=== PATIENT | female | born 1960 | race Caucasian/White ===

== ENCOUNTER 2016-12-13 13:25 | Emergency (ER) | payer OTHER ==
[~2016-12-13] VITALS: Ht 167.6 cm; Wt 74.2 kg
[~2016-12-13 13:25] MED LIST: BUPR-79 PO; LRT5 PO
[2016-12-13 13:29] VITALS: TEMP 36.5; Ht 167.6 cm; Wt 74.2 kg
--- NOTE | 2016-12-13 14:28 | EMERGENCY ROOM VISIT NOTE ---
History First contact with patient: 13:39 Chief Complaint: ABDOMINAL PAIN Stated Complaint: SEVERE ABD. PAIN, VOMITING-SUDDEN ONSET History of Present Illness The patient is a 56 year old female who presents to the Emergency Room with complaints of RLQ abdominal pain. Pain started 12 PM today and was 8/10 constant , sharp, and fluctuating in intensity and radiates to the back. NO particular aggravating or alleviating factors. Symptoms started after eating cherries and chips. She also reports associated N/V. She noted redness in vomit but was uncertain if it was blood or cherries. She also reports subjective fever and 1 episode of soft stool today. She did not take any medication for pain. No relevant past surgical history. On arrival to ED room, patient's abdominal pain has significantly improved to 2/ 10 . Nausea, Vomiting has resolved. Review of Systems Pt denies headache, change in vision, fevers, chest pain, shortness of breath, diarrhea, pain with urination, and melena. Past Medical/Surgical History Medical Problems: (1) No Known Active Medical Problems Surgical Problems: (1) H/O knee surgery Social History Smoking Status: Never Smoker Marital Status: Housing Status: lives with family Occupation Status: employed Current/Historical Medications No Active Prescriptions or Reported Meds Allergies Coded Allergies: No Known Allergies (Unverified , 12/13/16) Physical Exam Vital Signs Date Time Temp Pulse Resp B/P (MAP) Pulse Ox O2 Delivery O2 Flow Rate FiO2 12/13/16 14:59 78 12/13/16 14:47 70 15 123/79 97 Room Air 12/13/16 13:29 36.5 83 20 143/95 98 Room Air Physical Exam GENERAL: alert, well appearing, well nourished, no distress, non-toxic EYE EXAM: normal conjunctiva, PERRL and EOM's grossly intact OROPHARYNX: no exudate, no erythema, lips, buccal mucosa, and tongue normal and mucous membranes are moist NECK: supple, no nuchal rigidity, no adenopathy, non-tender LUNGS: Clear to auscultation. Normal chest wall mechanics HEART: no murmurs, S1 normal and S2 normal ABDOMEN: abdomen soft, mild suprapubic tenderness to palpation, normo-active bowel sounds, no masses, no rebound or guarding. BACK:no midline tenderness, no CVA tenderness. UPPER EXTREMITIES: upper extremities are grossly normal. LOWER EXTREMITIES: No pitting edema. NEURO EXAM: Normal sensorium, cranial nerves II-XII grossly intact, normal speech, no gross weakness of arms, no gross weakness of legs. Gross sensation intact. Medical Decision & Procedures Laboratory Results 12/13/16 14:16 Red Blood Count 4.53, Mean Corpuscular Volume 88.5, Mean Corpuscular Hemoglobin 29.6, Mean Corpuscular Hemoglobin Concent 33.4, Mean Platelet Volume 9.8, Neutrophils (%) (Auto) 72.0, Lymphocytes (%) (Auto) 21.8, Monocytes (%) (Auto) 5.4, Eosinophils (%) (Auto) 0.3, Basophils (%) (Auto) 0.2, Neutrophils # (Auto) 4.49, Lymphocytes # (Auto) 1.36, Monocytes # (Auto) 0.34, Eosinophils # (Auto) 0.02, Basophils # (Auto) 0.01 12/13/16 14:16 Test 12/13/16 14:00 12/13/16 14:16 Urine Color YELLOW Urine Appearance CLEAR (CLEAR) Urine pH 5.0 (4.5-7.5) Urine Specific [place] 1.021 (1.000-1.030) Urine Protein NEG (NEG) Urine Glucose (UA) NEG (NEG) Urine Ketones NEG (NEG) Urine Occult Blood 2+ (NEG) Urine Nitrite NEG (NEG) Urine Bilirubin NEG (NEG) Urine Urobilinogen NEG (NEG) Urine Leukocyte Esterase NEG (NEG) Urine WBC (Auto) 1-5 /hpf (0-5) Urine RBC (Auto) >30 /hpf (0-4) Urine Hyaline Casts (Auto) 1-5 /lpf (0-5) Urine Epithelial Cells (Auto) 10-20 /lpf (0-5) Urine Bacteria (Auto) NEG (NEG) White Blood Count 6.24 K/uL (4.8-10.8) Red Blood Count 4.53 M/uL (4.2-5.4) Hemoglobin 13.4 g/dL (12.0-16.0) Hematocrit 40.1 % (37-47) Mean Corpuscular Volume 88.5 fL (80-100) Mean Corpuscular Hemoglobin 29.6 pg (25-34) Mean Corpuscular Hemoglobin Concent 33.4 g/dl (32-36) Platelet Count 289 K/uL (130-400) Mean Platelet Volume 9.8 fL (7.4-10.4) Neutrophils (%) (Auto) 72.0 % Lymphocytes (%) (Auto) 21.8 % Monocytes (%) (Auto) 5.4 % Eosinophils (%) (Auto) 0.3 % Basophils (%) (Auto) 0.2 % Neutrophils # (Auto) 4.49 K/uL (1.4-6.5) Lymphocytes # (Auto) 1.36 K/uL (1.2-3.4) Monocytes # (Auto) 0.34 K/uL (0.11-0.59) Eosinophils # (Auto) 0.02 K/uL (0-0.5) Basophils # (Auto) 0.01 K/uL (0-0.2) RDW Standard Deviation 44.7 fL (36.4-46.3) RDW Coefficient of Variation 13.9 % (11.5-14.5) Immature Granulocyte % (Auto) 0.3 % Immature Granulocyte # (Auto) 0.02 K/uL (0.00-0.02) Anion Gap 6.0 mmol/L (3-11) Est Creatinine Clear Calc Drug Dose 73.6 ml/min Estimated GFR () 84.6 Estimated GFR (Non- 73.0 BUN/Creatinine Ratio 17.4 (10-20) Calcium Level 9.5 mg/dl (8.5-10.1) Total Bilirubin 0.5 mg/dl (0.2-1) Direct Bilirubin < 0.1 mg/dl (0-0.2) Aspartate Amino Transf (AST/SGOT) 16 U/L (15-37) Alanine Aminotransferase (ALT/SGPT) 24 U/L (12-78) Alkaline Phosphatase 114 U/L (45-117) Total Protein 8.2 gm/dl (6.4-8.2) Albumin 4.0 gm/dl (3.4-5.0) Lipase 105 U/L (73-393) Medical Decision This is a 56 yo F presenting with RLQ abdominal Pain radiating to back, N/V , pain significantly improved on arrival, minimally tender in suprapubic region on exam. Differential diagnoses includes but is not limited to gastritis, peptic ulcer disease, GERD, gallbladder disease, pancreatitis, small bowel obstruction, ischemic bowel, irritable bowel disease, irritable bowel syndrome, appendicitis , diverticulitis, malignancy, hernia, urinary tract infection, torsion, perforation, trauma, infectious. CBC: unremarkable UA: 2+ blood, >30 RBC.s Lipase: negative, no evidence of pancreatitis Abdominal XR: 1. Mild fullness right renal collecting system and right ureter 2. An obstructing calculus is not seen Patient refused any need for pain medication or anti-nausea medication during her hospital stay. CT findings were consistent with recently passed calculus which would be consistent with microscopic hematuria found on UA. Given normal CBC, lack of fever, pyelonephritis unlikely. She was later discharged with follow up to PCP on Tuesday (12/13) and given instruction on proper hydration and pain management with Ibuprofen. Impression Primary Impression: Right flank pain Additional Impression: Hematuria Departure Information Dispostion Home / Self-Care Condition GOOD Prescriptions No Active Prescriptions or Reported Meds Referrals Marky Branch M.D. (PCP) Patient Instructions My [facility] Resident Tracking Resident Involvement: Resident Care Provided Care Provided: Adult ED Problem Qualifiers
--- NOTE | 2016-12-13 14:31 | EMERGENCY ROOM VISIT NOTE ---
History Report prepared by Ramesh: Olaf Tapia Under the Supervision of: Dr. Kit Myers M.D. First contact with patient: 13:39 Chief Complaint: ABDOMINAL PAIN Stated Complaint: SEVERE ABD. PAIN, VOMITING-SUDDEN ONSET History of Present Illness The patient is a 56 year old female who presents to the Emergency Room with complaints of "sharp", waxing and waning RLQ abdominal pain beginning 2 hours ago. She states that her pain began suddenly and states that it radiates into her back. She states that her pain improved immediately while having her blood pressure measured upon arriving to the ED and now rates it as a 2/10 in severity. The patient states that her pain began after eating some cherries and chips. She also complains of nausea, vomiting, subjective fever, and an episode of diarrhea. She notes that there was some red coloration to the vomit, but is not sure if this could be the cherries that she ate. The patient has had some tonic water, but has not taken any medications for her pain. She denies any recent falls or trauma. She notes that she was riding a horse for most of the day yesterday. The patient has no history of similar symptoms other than with previous menstrual cycles. She has a history of endometriosis. She has no personal or family history of kidney stones. The patient notes that she had some right lower back pain yesterday as well. Source of History: patient Onset: 2 hours ago Position: abdomen (RLQ) Symptom Intensity: 2/10 currently Quality: sharp Timing: waxes/wanes Associated Symptoms: + fevers (subjective), + nausea, + vomiting, + back pain, + diarrhea (one episode) Review of Systems See HPI for pertinent positives & negatives. A total of 10 systems reviewed and were otherwise negative. Past Medical & Surgical Medical Problems: (1) No Known Active Medical Problems Surgical Problems: (1) H/O knee surgery Family History No pertinent family history stated. Social History Smoking Status: Never Smoker Current/Historical Medications No Active Prescriptions or Reported Meds Allergies Coded Allergies: No Known Allergies (Unverified , 12/13/16) Physical Exam Vital Signs Date Time Temp Pulse Resp B/P (MAP) Pulse Ox O2 Delivery O2 Flow Rate FiO2 12/13/16 14:59 78 12/13/16 14:47 70 15 123/79 97 Room Air 12/13/16 13:29 36.5 83 20 143/95 98 Room Air Physical Exam GENERAL: Patient is in no acute distress. HEENT: No acute trauma, normocephalic atraumatic, mucous membranes moist, no nasal congestion, no scleral icterus. NECK: No stridor, no adenopathy, no meningismus, trachea is midline. LUNGS: Clear to auscultation bilaterally, no wheeze, no rhonchi, breath sounds equal. HEART: Without murmurs gallops or rubs, regular rate and rhythm. ABDOMEN: Soft, mildly tender in the RLQ, bowel sounds positive, no hernias, no peritonitis. EXTREMITIES: No cyanosis or edema, full range of motion of all the joints without pain or difficulty, no signs for acute trauma. NEUROLOGIC: Oriented x 3, no acute motor or sensory deficits, no focal weakness. SKIN: No rash, no jaundice, no diaphoresis. Medical Decision & Procedures ER Provider Diagnostic Interpretation: Radiology results as stated below per my review and radiologist interpretation: ABD/PELVIS WITHOUT FOR STONE FINDINGS: Lung bases are clear. Liver spleen and pancreas are unremarkable. Mild fullness of the right renal collecting system and right ureter as compared to the left. No definite renal calcifications. Possibility of a recently passed calculus is considered bowel pattern is nonobstructive. The appendix is identified and appears normal. It has a maximum diameter of 5 mm. Bowel pattern is nonobstructive. No significant free fluid within the pelvic cul-de-sac. IMPRESSION: 1. Mild fullness right renal collecting system and right ureter 2. An obstructing calculus is not seen 3. Differential considerations must include a recently passed calculus versus pyelonephritis. 4. Nonobstructive bowel pattern. 5. Normal appendix The above report was generated using voice recognition software. It may contain grammatical, syntax or spelling errors. Electronically signed by: Dennis Lewis M.D. 12/13/2016 4:38 PM ABDOMEN 2VIEW W/PA CHEST RTN FINDINGS: Cardiomediastinal silhouette normal. Lungs and pleural spaces clear. Normal bowel gas pattern. No evidence of free intraperitoneal gas, pneumatosis, or portal venous gas. Osseous structures normal. IMPRESSION: 1. No acute cardiopulmonary disease. No radiographic evidence of acute intra-abdominal pathology. Electronically signed by: Fran Connelly M.D. Laboratory Results 12/13/16 14:16 Red Blood Count 4.53, Mean Corpuscular Volume 88.5, Mean Corpuscular Hemoglobin 29.6, Mean Corpuscular Hemoglobin Concent 33.4, Mean Platelet Volume 9.8, Neutrophils (%) (Auto) 72.0, Lymphocytes (%) (Auto) 21.8, Monocytes (%) (Auto) 5.4, Eosinophils (%) (Auto) 0.3, Basophils (%) (Auto) 0.2, Neutrophils # (Auto) 4.49, Lymphocytes # (Auto) 1.36, Monocytes # (Auto) 0.34, Eosinophils # (Auto) 0.02, Basophils # (Auto) 0.01 12/13/16 14:16 Test 12/13/16 14:00 12/13/16 14:16 Urine Color YELLOW Urine Appearance CLEAR (CLEAR) Urine pH 5.0 (4.5-7.5) Urine Specific [place] 1.021 (1.000-1.030) Urine Protein NEG (NEG) Urine Glucose (UA) NEG (NEG) Urine Ketones NEG (NEG) Urine Occult Blood 2+ (NEG) Urine Nitrite NEG (NEG) Urine Bilirubin NEG (NEG) Urine Urobilinogen NEG (NEG) Urine Leukocyte Esterase NEG (NEG) Urine WBC (Auto) 1-5 /hpf (0-5) Urine RBC (Auto) >30 /hpf (0-4) Urine Hyaline Casts (Auto) 1-5 /lpf (0-5) Urine Epithelial Cells (Auto) 10-20 /lpf (0-5) Urine Bacteria (Auto) NEG (NEG) White Blood Count 6.24 K/uL (4.8-10.8) Red Blood Count 4.53 M/uL (4.2-5.4) Hemoglobin 13.4 g/dL (12.0-16.0) Hematocrit 40.1 % (37-47) Mean Corpuscular Volume 88.5 fL (80-100) Mean Corpuscular Hemoglobin 29.6 pg (25-34) Mean Corpuscular Hemoglobin Concent 33.4 g/dl (32-36) Platelet Count 289 K/uL (130-400) Mean Platelet Volume 9.8 fL (7.4-10.4) Neutrophils (%) (Auto) 72.0 % Lymphocytes (%) (Auto) 21.8 % Monocytes (%) (Auto) 5.4 % Eosinophils (%) (Auto) 0.3 % Basophils (%) (Auto) 0.2 % Neutrophils # (Auto) 4.49 K/uL (1.4-6.5) Lymphocytes # (Auto) 1.36 K/uL (1.2-3.4) Monocytes # (Auto) 0.34 K/uL (0.11-0.59) Eosinophils # (Auto) 0.02 K/uL (0-0.5) Basophils # (Auto) 0.01 K/uL (0-0.2) RDW Standard Deviation 44.7 fL (36.4-46.3) RDW Coefficient of Variation 13.9 % (11.5-14.5) Immature Granulocyte % (Auto) 0.3 % Immature Granulocyte # (Auto) 0.02 K/uL (0.00-0.02) Anion Gap 6.0 mmol/L (3-11) Est Creatinine Clear Calc Drug Dose 73.6 ml/min Estimated GFR () 84.6 Estimated GFR (Non- 73.0 BUN/Creatinine Ratio 17.4 (10-20) Calcium Level 9.5 mg/dl (8.5-10.1) Total Bilirubin 0.5 mg/dl (0.2-1) Direct Bilirubin < 0.1 mg/dl (0-0.2) Aspartate Amino Transf (AST/SGOT) 16 U/L (15-37) Alanine Aminotransferase (ALT/SGPT) 24 U/L (12-78) Alkaline Phosphatase 114 U/L (45-117) Total Protein 8.2 gm/dl (6.4-8.2) Albumin 4.0 gm/dl (3.4-5.0) Lipase 105 U/L (73-393) Laboratory results reviewed by me. ED Course 1342: The patient was evaluated in room C8. A complete history and physical exam was performed. 1700: Reevaluated the patient. Discussed results and discharge instructions: she verbalized understanding and agreement. The patient is ready for discharge. Medical Decision The patient is a 56 year old female who presents to the ED with complaints of abdominal pain. Differential diagnoses considered include renal colic, biliary colic, ovarian cyst, UTI, bowel obstruction, hernia, pancreatitis, appendicitis , and viral illness. There is no leukocytosis or concerning anemia. No significant electrolyte abnormality, kidney failure or hepatitis. There is no pancreatitis. Urinalysis does show hematuria, no infection. Abdominal and pelvis CT shows some fullness to the right renal collecting system consistent with a possible recently passed stone. The patient is now basically pain-free and looking well. She may have passed a small ureteral stone. She is being discharged with outpatient follow-up, she will return for increasing pain, vomiting or recurrent symptoms. Impression Primary Impression: Right flank pain Additional Impression: Hematuria Scribe Attestation The scribe's documentation has been prepared under my direction and personally reviewed by me in its entirety. I confirm that the note above accurately reflects all work, treatment, procedures, and medical decision making performed by me. Departure Information Dispostion Home / Self-Care Prescriptions No Active Prescriptions or Reported Meds Referrals Marky Branch M.D. (PCP) Forms Call Back Authorization, HOME CARE DOCUMENTATION FORM, IMPORTANT VISIT INFORMATION Patient Instructions My [facility] Additional Instructions If you experience worsening pain, fever, chills, nausea/vomiting, or you feel concerned, please call clinic or return to Emergency Dept. Drink frequent fluids F/u w/ PCP at scheduled appt on Tuesday Problem Qualifiers
--- NOTE | 2016-12-13 14:43 | DIAGNOSTIC IMAGING REPORT ---
ABDOMEN 2VIEW W/PA CHEST RTN CLINICAL HISTORY: 56 years-old Female presenting with abdominal pain. TECHNIQUE: PA view of the chest and supine and upright views of the abdomen were obtained. COMPARISON: Chest x-ray from 2007. FINDINGS: Cardiomediastinal silhouette normal. Lungs and pleural spaces clear. Normal bowel gas pattern. No evidence of free intraperitoneal gas, pneumatosis, or portal venous gas. Osseous structures normal. IMPRESSION: 1. No acute cardiopulmonary disease. No radiographic evidence of acute intra-abdominal pathology. Electronically signed by: Fran Connelly M.D. 12/13/2016 2:42 PM Dictated Date/Time: 12/13/2016 2:41 PM
[2016-12-13 14:55] LABS: BASO % 0.2 %; BASO ABS # 0.01 K/uL (0-0.2); COMPLETE YES; EOS % 0.3 %; HEMATOCRIT 40.1 % (37-47); IG% 0.3 %; LYMPH % 21.8 %; LYMPH ABS # 1.36 K/uL (1.2-3.4); MEAN CELL VOLUME 88.5 fL (80-100); MEAN CORPUSCULAR HEMOGLOBIN 29.6 pg (25-34); MEAN CORPUSCULAR HGB CONC 33.4 g/dl (32-36); MEAN PLATELET VOLUME 9.8 fL (7.4-10.4); MONO % 5.4 %; PLATELET COUNT 289 K/uL (130-400); RED BLOOD COUNT 4.53 M/uL (4.2-5.4); WHITE BLOOD COUNT 6.24 K/uL (4.8-10.8)
[2016-12-13 15:16] LABS: ALT/SGPT 24 U/L (12-78); BLOOD UREA NITROGEN 16 mg/dl (7-18); BUN/CREATININE RATIO 17.4 (10-20); CALCIUM 9.5 mg/dl (8.5-10.1); CARBON DIOXIDE 26 mmol/L (21-32); CHLORIDE 109 mmol/L (98-107); CREATININE 0.89 mg/dl (0.60-1.20); GLUCOSE 104 mg/dl (70-99); POTASSIUM 3.7 mmol/L (3.5-5.1); SODIUM 141 mmol/L (136-145)
[2016-12-13 15:18] LABS: ALKALINE PHOSPHATASE 114 U/L (45-117); AST/SGOT 16 U/L (15-37)
[2016-12-13 15:28] LABS: URINE APPEARANCE CLEAR (CLEAR); URINE BILIRUBIN NEG (NEG); URINE COLOR YELLOW; URINE NITRITE NEG (NEG); URINE SPECIFIC GRAVITY 1.021 (1.000-1.030); UROBILINOGEN NEG (NEG); ZZUR CULT IF INDIC CLEAN CATCH NO
[2016-12-13 15:34] LABS: MANUAL MICROSCOPIC REQUIRED? NO; REVIEW REQ? NO
--- NOTE | 2016-12-13 16:40 | DIAGNOSTIC IMAGING REPORT ---
ABD/PELVIS WITHOUT FOR STONE CT DOSE: 867.79 mGy.cm HISTORY: Pain RLQ pain, microscopic hematuria TECHNIQUE: Multiaxial CT images of the abdomen and pelvis were performed without the use of intravenous and oral contrast according to the standard department stone protocol. COMPARISON STUDY: None. FINDINGS: Lung bases are clear. Liver spleen and pancreas are unremarkable. Mild fullness of the right renal collecting system and right ureter as compared to the left. No definite renal calcifications. Possibility of a recently passed calculus is considered bowel pattern is nonobstructive. The appendix is identified and appears normal. It has a maximum diameter of 5 mm. Bowel pattern is nonobstructive. No significant free fluid within the pelvic cul-de-sac. IMPRESSION: 1. Mild fullness right renal collecting system and right ureter 2. An obstructing calculus is not seen 3. Differential considerations must include a recently passed calculus versus pyelonephritis. 4. Nonobstructive bowel pattern. 5. Normal appendix The above report was generated using voice recognition software. It may contain grammatical, syntax or spelling errors. Electronically signed by: Dennis Lewis M.D. 12/13/2016 4:38 PM Dictated Date/Time: 12/13/2016 4:32 PM
[2016-12-13 17:14] VITALS: BP 114/84; PULSE 73; O2SAT 97
== END 2016-12-13 17:10 | disposition home or self-care (01) ==
LOC: C.EDB 13:27 → C.EDC 17:10
DX: R10.9 Unspecified abdominal pain (principal); R31.9 Hematuria, unspecified

== ENCOUNTER → 2017-04-27 | Outpatient (CLI) | payer OTHER ==
[2017-04-27 17:04] LABS: ALT/SGPT 29 U/L (12-78); BLOOD UREA NITROGEN 20 mg/dl (7-18); CALCIUM 9.1 mg/dl (8.5-10.1); CARBON DIOXIDE 28 mmol/L (21-32); CHLORIDE 106 mmol/L (98-107); CREATININE 0.72 mg/dl (0.60-1.20); GLUCOSE 90 mg/dl (70-99); POTASSIUM 3.7 mmol/L (3.5-5.1); SODIUM 140 mmol/L (136-145)
[2017-04-27 17:07] LABS: ALB/GLOB RATIO 0.9 (0.9-2); ALKALINE PHOSPHATASE 125 U/L (45-117); AST/SGOT 20 U/L (15-37)
== END | disposition home or self-care (01) ==
LOC: C.LAB 15:24
PROVIDERS: ATTEND Urology
DX: N95.1 Menopausal and female climacteric states (principal)

== ENCOUNTER → 2017-05-02 | Outpatient (CLI) | payer OTHER ==
[~2017-05-02] MED LIST changes: -BUPR-79 PO; -LRT5 PO; +OPTIRAY 320 IV PRN
--- NOTE | 2017-05-02 09:57 | DIAGNOSTIC IMAGING REPORT ---
ABD/PELVIS COMBO HISTORY: 57 years-old Female R31.29 Hematuria, [id number] HydronephrosisAUTH REC'D (D3 acute microscopic hematuria COMPARISON: CT abdomen and pelvis 12/13/2016 TECHNIQUE: Multiple axial CT images of the abdomen and pelvis were obtained both with and without the use of 93 mL Optiray 320 utilizing hematuria protocol. A dose lowering technique was used consistent with the principals of KATIE. FINDINGS: Minimal dependent subsegmental bibasilar atelectasis. No pneumoperitoneum or pneumatosis. The imaged inferior cardiac chambers are unremarkable. The liver, spleen, gallbladder, pancreas and adrenal glands are within normal limits. The noncontrast scan demonstrates no urolith. Bilateral kidneys are within normal limits. No significant renal atrophy or focal renal mass lesions identified. The delayed postcontrast images demonstrate no focal collecting system or ureteral filling defects. No obstructive uropathy. The distal most portions of the ureters are not well opacified and therefore not well evaluated. Urinary bladder is partially collapsed. There is mild wall thickening of the bladder without significant surrounding inflammatory stranding. Uterus and adnexa are unremarkable. No adnexal mass lesions identified. The aorta is normal in course and caliber. There is no bulky adenopathy identified. There is no bowel obstruction or focal bowel wall thickening. The appendix appears normal. Soft tissues are unremarkable. The bones appear intact. Mild multilevel endplate spurring of the spine. IMPRESSION: 1. No acute intra-abdominal or intrapelvic abnormality identified. 2. No renal calculi or obstructive uropathy. No filling defects identified within the collecting systems or ureters. 3. Mild wall thickening of the bladder may be secondary to partial distention or cystitis. Correlate with urinalysis. 4. Normal appendix. The above report was generated using voice recognition software. It may contain grammatical, syntax or spelling errors. Electronically signed by: Alon Huitron M.D. 05/02/2017 9:56 AM Dictated Date/Time: 05/02/2017 9:48 AM
== END | disposition home or self-care (01) ==
LOC: C.CTS 09:04
PROVIDERS: ATTEND Urology
DX: R31.29 Other microscopic hematuria (principal); N13.30 Unspecified hydronephrosis